=== PATIENT | female | born 1995 | race African-American/Black ===

== ENCOUNTER 2016-08-06 17:00 | Emergency (ER) | payer OTHER ==
[~2016-08-06 17:00] MED LIST: FLONASE16 G1 BOTH NARES; MUCINEX D ER T1 EACH PO; NAPROSYN500 MG PO; PRENATAL VITAM1 EAC6 PO; TESSALON PERLE100 MG PO
== END 2016-08-06 19:03 | disposition home or self-care (01) ==
LOC: TRA 17:00
PROC: 0HQDXZZ Repair Right Lower Arm Skin, External Approach (ICD-10-PCS; principal; 2016-08-06)
DX: S51.811A Laceration without foreign body of right forearm, initial encounter (principal); X99.8XXA Assault by other sharp object, initial encounter
CPT/HCPCS: 80048; 81003; 82150; 83690; 84702; 85025; 86900; 86901; 94799; 99281; 99284; G0480

== ENCOUNTER 2016-10-11 09:42 | Emergency (ER) | payer OTHER ==
[~2016-10-11] VITALS: Ht 170.2 cm; Wt 87.6 kg
[2016-10-11 10:46] VITALS: BP 114/82
== END 2016-10-11 10:47 | disposition home or self-care (01) ==
LOC: EME 09:42
DX: S06.0X0A Concussion without loss of consciousness, initial encounter (principal); S02.2XXA Fracture of nasal bones, initial encounter for closed fracture; S00.31XA Abrasion of nose, initial encounter; W10.9XXA Fall (on) (from) unspecified stairs and steps, initial encounter; Z72.0 Tobacco use
CPT/HCPCS: 99281; 99284

== ENCOUNTER 2017-03-10 17:01 | Emergency (ER) | payer OTHER ==
[~2017-03-10] VITALS: Ht 170.2 cm; Wt 85.4 kg
[2017-03-10 19:07] LABS: HEMATOCRIT 43.6 % (36.0-46.0); MCH 31.3 PG (29.0-34.0); MCV 94.8 FL (83-99); MEAN PLAT.VOLUME 10.3 uM^3 (9.5-12.4); PLATELET COUNT 200 K/uL (156-360); RBC DIS.WIDTH-CV 13.3 % (11.8-14.6); RBC DIS.WIDTH-SD 46.9 % (39-53); WHITE BLOOD COUNT 7.7 K/uL (4.1-10.2)
[2017-03-10 19:29] LABS: CHLORIDE 107 mEq/L (99-109); POTASSIUM 4.5 mEq/L (3.7-5.4); SODIUM 139 mEq/L (136-147)
[2017-03-10 19:30] LABS: GLUCOSE 108 mg/dL (70-99)
[2017-03-10 19:32] LABS: ANION GAP 6 MEQ/L (2-14)
[2017-03-10 19:34] LABS: GFR ESTIMATE (CALCULATED) > 59 mL/min/
[2017-03-10 19:35] LABS: UREA NITROGEN (BUN) 11 mg/dL (9-23)
[2017-03-10 20:16] VITALS: BP 110/71
== END 2017-03-10 20:17 | disposition home or self-care (01) ==
LOC: EME 17:01
PROVIDERS: Emergency Medicine
DX: N95.1 Menopausal and female climacteric states (principal); M54.9 Dorsalgia, unspecified; F17.200 Nicotine dependence, unspecified, uncomplicated
CPT/HCPCS: 80048; 85027; 99281; 99283

== ENCOUNTER 2017-09-01 22:59 | Emergency (ER) | payer OTHER ==
[~2017-09-01] VITALS: Ht 170.2 cm; Wt 81.0 kg
[2017-09-01 23:55] LABS: HEMATOCRIT 37.7 % (36.0-46.0); MCH 32.2 PG (29.0-34.0); MCHC 34.5 G/DL (30.0-36.0); MCV 93.3 FL (83-99); PLATELET COUNT 185 K/uL (156-360); RBC DIS.WIDTH-CV 12.8 % (11.8-14.6); RED BLOOD COUNT 4.04 M/uL (3.80-5.20); WHITE BLOOD COUNT 7.2 K/uL (4.1-10.2)
[2017-09-02 00:07] LABS: CHLORIDE 109 mEq/L (99-109); POTASSIUM 3.5 mEq/L (3.7-5.4); SODIUM 142 mEq/L (136-147)
[2017-09-02 00:09] LABS: GLUCOSE 94 mg/dL (70-99)
[2017-09-02 00:13] LABS: GFR ESTIMATE (CALCULATED) > 59 mL/min/
[2017-09-02 00:14] LABS: UREA NITROGEN (BUN) 11 mg/dL (9-23)
[2017-09-02 00:38] LABS: QUANTITATIVE HCG < 4.0 MIU/ML
[2017-09-02 01:49] VITALS: BP 106/82
== END 2017-09-02 01:51 | disposition left against medical advice (07) ==
LOC: EME 22:59
PROVIDERS: Physician Assistant
PROC: 0CQ0XZZ Repair Upper Lip, External Approach (ICD-10-PCS; principal; 2017-09-01)
DX: S01.511A Laceration without foreign body of lip, initial encounter (principal); Y04.2XXA Assault by strike against or bumped into by another person, initial encounter; Y07.9 Unspecified perpetrator of maltreatment and neglect; F17.200 Nicotine dependence, unspecified, uncomplicated
CPT/HCPCS: 70450; 70498; 73060; 73090; 80048; 84702; 85027; 99281; 99284; J7030